=== PATIENT | male | born 1960 | race Asian ===

== ENCOUNTER 2019-12-08 10:27 | Outpatient (REF) | payer BC, SELFPAY ==
[2019-12-08 12:02] LABS: MANUAL DIFF FLAG NO
[2019-12-08 12:10] LABS: Basophils Percent Auto 0.6 % (0-2); Eosinophils Absolute Auto 0.1 X10*3/uL (0.0-0.4); Eosinophils Percent Auto 1.7 % (0-4); Hematocrit 52.1 % (42-52); Hemoglobin 16.6 g/dl (14.0-18.0); Imm Gran Abs Auto 0.01 X10*3/uL (0.00-0.03); Imm Gran Pct Auto 0.2 % (0.0-0.4); Lymphocytes Absolute Auto 2.9 X10*3/uL (1.2-4.9); Lymphocytes Percent Auto 44.7 % (20-40); Mean Corpuscular HGB Conc 31.9 g/dl (31.0-36.0); Mean Corpuscular Hemoglobin 27.1 pg (27.0-33.0); Mean Platelet Volume 12.5 fL (9.4-12.4); Monocytes Absolute Auto 0.6 X10*3/uL (0.1-1.2); Monocytes Percent Auto 9.7 % (2-11); Neutrophils Absolute Auto 2.8 X10*3/uL (2.0-8.3); Neutrophils Percent Auto 43.1 % (45-73); Platelet Count 176 X10*3/uL (160-400); Red Blood Count 6.13 X10*6/uL (4.60-5.80); Red Cell Distribution Width 13.1 % (11.0-16.0); White Blood Count 6.4 X10*3/uL (4.8-10.8)
[2019-12-08 12:56] LABS: Alanine Aminotransferase 29 U/L (0-40); Albumin Level 4.4 g/dL (3.5-5.0); Alkaline Phosphatase 69 U/L (39-117); Anion Gap 10 (12-20); Aspartate Amino Transferase 27 U/L (5-37); Bilirubin Total 0.9 mg/dL (0.0-1.0); Blood Urea Nitrogen 13 mg/dL (9-16); Calcium 9.3 mg/dL (8.4-10.2); Carbon Dioxide 30 mmol/L (22-29); Chloride 106 mmol/L (96-108); Cholesterol 153 mg/dL; Estimated Glomerular Filt Rate > 60; Glucose Fasting 86 mg/dL (60-99); HDL Cholesterol 33 mg/dL; LDL Cholesterol Calculated 93 mg/dl; Potassium 4.1 mmol/l (3.3-5.1); Sodium 142 mmol/L (135-145); Total Protein 7.4 g/dL (6.5-8.0); Triglycerides 137 mg/dL
[2019-12-08 12:58] LABS: Prostate Specific Antigen Scr 0.13 ng/mL (<0.05-4.0); TSH reflex Free T4 0.68 mIU/mL (0.32-4.0); Vitamin D 25-OH Total 71.4 ng/mL (>30)
== END 2019-12-08 10:28 | disposition home or self-care (01) ==
LOC: HO.LAB 10:27
PROVIDERS: Visit Provider Physician Assistant
DX: Z12.5 Encounter for screening for malignant neoplasm of prostate (principal); Z13.1 Encounter for screening for diabetes mellitus; E78.1 Pure hyperglyceridemia; E55.9 Vitamin D deficiency, unspecified
CPT/HCPCS: 36415; 80053; 80061; 82306; 84153; 84443; 85025

== ENCOUNTER 2020-03-04 15:45 | Emergency (ER) | payer BC, SELFPAY ==
[2020-03-04 15:50] VITALS: BP 160/91; PULSE 77; RESP 18; TEMP 36.6; O2SAT 99; BMI 26.5
[2020-03-04 19:37] VITALS: BP 156/92; PULSE 67; RESP 18; O2SAT 99
--- NOTE | 2020-03-04 19:38 | PC.NURSE ---
labs being drawn at this time. pt states he has numbness to his left side and pain to abd left side.
--- NOTE | 2020-03-04 19:42 | PC.NURSE ---
pt has steady gait.
[2020-03-04 20:10] LABS: MANUAL DIFF FLAG NO
[2020-03-04 20:13] LABS: Basophils Percent Auto 0.5 % (0-2); Eosinophils Absolute Auto 0.1 X10*3/uL (0.0-0.4); Eosinophils Percent Auto 2.1 % (0-4); Hematocrit 50.4 % (42-52); Hemoglobin 16.2 g/dl (14.0-18.0); Imm Gran Abs Auto 0.02 X10*3/uL (0.00-0.03); Imm Gran Pct Auto 0.4 % (0.0-0.4); Lymphocytes Absolute Auto 2.2 X10*3/uL (1.2-4.9); Mean Corpuscular HGB Conc 32.1 g/dl (31.0-36.0); Mean Corpuscular Hemoglobin 27.4 pg (27.0-33.0); Mean Corpuscular Volume 85.1 fL (80-98); Mean Platelet Volume 11.7 fL (9.4-12.4); Monocytes Absolute Auto 0.7 X10*3/uL (0.1-1.2); Monocytes Percent Auto 12.1 % (2-11); Neutrophils Absolute Auto 2.7 X10*3/uL (2.0-8.3); Neutrophils Percent Auto 46.9 % (45-73); Platelet Count 174 X10*3/uL (160-400); Red Blood Count 5.92 X10*6/uL (4.60-5.80); Red Cell Distribution Width 12.7 % (11.0-16.0); White Blood Count 5.7 X10*3/uL (4.8-10.8)
[2020-03-04 20:31] LABS: Alanine Aminotransferase 41 U/L (0-40); Albumin Level 4.3 g/dL (3.5-5.0); Alkaline Phosphatase 71 U/L (39-117); Anion Gap 12 (12-20); Aspartate Amino Transferase 34 U/L (5-37); Bilirubin Total 0.7 mg/dL (0.0-1.0); Blood Urea Nitrogen 10 mg/dL (9-16); Calcium 8.9 mg/dL (8.4-10.2); Carbon Dioxide 26 mmol/L (22-29); Chloride 107 mmol/L (96-108); Creatinine Clr Calc Pharmacy 77.1; Estimated Glomerular Filt Rate > 60; Glucose Random 99 mg/dL (60-115); Potassium 4.3 mmol/l (3.3-5.1); Sodium 141 mmol/L (135-145); Total Protein 7.4 g/dL (6.5-8.0)
--- NOTE | 2020-03-04 21:14 | ECG_ITS ---
Test Reason : NUMBNESS Blood Pressure : / mmHG Vent. Rate : 067 BPM Atrial Rate : 067 BPM P-R Int : 152 ms QRS Dur : 096 ms QT Int : 398 ms P-R-T Axes : 051 027 039 degrees QTc Int : 420 ms Normal sinus rhythm Normal ECG No previous ECGs available Referred By: Albino Chang Electronically Signed By:Nicholas Gray
--- NOTE | 2020-03-04 21:17 | ED_ITS ---
HPI - Weakness General Chief complaint: Weakness Stated complaint: one sided numbness,loss of balance Time Seen by Provider: 03/04/20 17:02 Source: patient Mode of arrival: ambulatory Limitations: no limitations History of Present Illness HPI Narrative: Patient presents to ED for lower back pain radiating down left leg for 2 days. Patient states numbness/tingling going down the left leg patient and also states left arm numbness for two days. patient states two days ago he had chest pain that resolved and never came back. Patient denies any shortness of breath, chest pain on inspiration, swelling of lower extremities, calf pain, coughing up blood, fever, chills, recent long travel, estrogen hormone use, or any recent trauma to the chest. Patient states having the symptoms for 2 days. Patient denies denies any dizziness, slurred speech, loss of vision, shortness of breath, paralysis of extremities, or altered mental status. Related Data Home Medications Medication Instructions Recorded Confirmed cholecalciferol (vitamin D3) 25 25 mcg PO DAILY 11/25/19 11/29/19 mcg (1,000 unit) tablet Allergies Allergy/AdvReac Type Severity Reaction Status Date / Time ciprofloxacin [From Cipro] Allergy Unknown Unknown Verified 11/29/19 14:57 Review of Systems 2 Review of Systems: Yes all other systems are reviewed and are negative Constitutional: Constitutional: Reports as per HPI and Reports no additional constitutional complaints Eyes: Eyes: Reports as per HPI and Reports no additional eye complaints ENT: Reports system reviewed and no additional complaints, except as documented and Reports as per HPI Cardiovascular: Cardiovascular: Reports as per HPI and Reports no additional cardiovascular complaints Respiratory: Respiratory: Reports as per HPI and Reports no additional respiratory complaints Gastrointestinal: Gastrointestinal: Reports as per HPI and Reports no additional gastrointestinal complaints Genitourinary: Genitourinary: Reports no additional male genitourinary complaints and Reports as per HPI Musculoskeletal: Musculoskeletal: Reports no additional musculoskeletal complaints, Reports as per HPI and Reports tingling Neurologic: Reports system reviewed and no additional complaints, except as documented, Reports as per HPI, Reports tingling and Reports paresthesias Psychiatric: Psychiatric: Reports no additional psychiatric complaints and Reports as per HPI PMFSH Past Medical History Medical History (Updated 03/05/20 @ 00:00 by Hoda Uriarte) Hypertriglyceridemia Normal colonoscopy Sleep apnea Family History Family History (Updated 10/01/20 @ 11:48 by MARIANELA Quinones) Father No problems noted. Mother No problems noted. Brother CVA (cerebral vascular accident) Sister Heart murmur Social History Social History (Updated 11/29/19 @ 15:00 by Mark Meléndez PA-C) Alcohol intake: current Smoking Status: Never smoker Advance Directives: No Physical Exam Vital Signs: Vital Signs: Last Vital Signs Temp 97.8 F 03/04/20 15:50 Pulse 63 03/04/20 22:00 Resp 18 03/04/20 22:00 BP 112/70 03/04/20 22:00 Pulse Ox 98 03/04/20 22:00 Body Mass Index 26.5 Const: General: cooperative, healthy appearing, comfortable, no acute distress, well developed, alert, awake and Physically active Orientation/consciousness: patient oriented x3 HENMT: Head: Yes normal to inspection, Yes No palpable skull fracture present, Yes normocephalic, Yes atraumatic and No abrasion Eyes: General: appearance normal, both eyes and all related structures Neck: Neck: Yes normal visual inspection, Yes full ROM, Yes no lymphade nopathy, Yes no meningeal signs, Yes trachea midline, Yes supple and No tender Chest: Chest palpation & inspection: normal inspection of the chest and normal palpation of entire chest wall Resp: Effort & Inspection: normal respiratory effort and able to speak in complete sentences Auscultation: clear to auscultation bilaterally Cardio: Jugular venous distension: no JVD Heart sounds: S1 normal heart sound present and S2 normal heart sound present GI: Inspection: Yes normal to inspection Palpation (GI): Soft to palpation, not firm, nontender, no guarding and not rigid : General: No CVA tenderness and Yes no CVA tenderness Back/Spine/Pelvis: Back: no CVA tenderness, No CVA tenderness and back te nderness (Lumbar spine tenderness) Skin: General skin exam: no rashes or lesions noted and elasticity normal Neuro: Other: Negative facial droop. Negative slurred speech. All ext remities motor/neuro/vascular exam is intact. All extremity strength 4+. Negative Romberg. Rapid hand movement and [id number] test is intact. General: patient oriented x3, gait normal, no meningeal signs and CN's II-XI intact bilaterally Cranial nerves: Yes CN's II-XII intact bilaterally Extrem: General: Yes normal to inspection and Yes full ROM Psych: Appearance: grossly normal, well kempt and not disheveled Course Course Course Narrative: Patient have a CT scan, UA, EKG, troponin, and basic labs ordered. Reevaluation(s) Reevaluation #1: Physical exam negative for any neuro deficits. Due to age patient was sent for head CT scan which was negative for any stroke. Patient's EKG is normal. Patient's chest x-ray negative for any pneumonia or any other pulmonary etiology. Lumbar x-ray shows arthritis of the lumbar spine. UA negative for any blood. Patient does not have any CVA tenderness. Not suspecting kidney stones. Time: 23:06 MDM - Weakness MDM Narrative Medical decision making narrative: Paresthesia. Lumbar radiculopathy Lab Data Result diagrams: 03/04/20 19:41 03/04/20 19:41 Labs: Lab Results 03/04/20 03/04/20 03/04/20 Range/Units 19:41 19:41 19:41 WBC 5.7 (4.8-10.8) X10*3/uL RBC 5.92 H (4.60-5.80) X10*6/uL Hgb 16.2 (14.0-18.0) g/dl Hct 50.4 (42-52) % MCV 85.1 (80-98) fL MCH 27.4 (27.0-33.0) pg MCHC 32.1 (31.0-36.0) g/dl RDW 12.7 (11.0-16.0) % Plt Count 174 (160-400) X10*3/uL MPV 11.7 (9.4-12.4) fL Immature Gran % (Auto) 0.4 (0.0-0.4) % Neut % (Auto) 46.9 (45-73) % Lymph % (Auto) 38.0 (20-40) % Pershing % (Auto) 12.1 H (2-11) % Eos % (Auto) 2.1 (0-4) % Baso % (Auto) 0.5 (0-2) % Lymph # (Auto) 2.2 (1.2-4.9) X10*3/uL Pershing # (Auto) 0.7 (0.1-1.2) X10*3/uL Eos # (Auto) 0.1 (0.0-0.4) X10*3/uL Baso # (Auto) 0.0 (0.0-0.2) X10*3/uL Abs Immat Gran (auto) 0.02 (0.00-0.03) X10*3/uL Absolute Neuts (auto) 2.7 (2.0-8.3) X10*3/uL Absolute Nucleated RBC 0.000 (0.0-0.012) X10*3/uL Nucleated RBC % (auto) 0.0 (0.0-0.2) /100WBC Hold Purple Top SEE NOTE PT 12.3 (10.8-13.0) SEC INR 1.0 (0.9-1.1) APTT 36.6 (24.1-38.0) SEC Hold Blue Top SEE NOTE Sodium (135-145) mmol/L Potassium (3.3-5.1) mmol/l Chloride (96-108) mmol/L Carbon Dioxide (22-29) mmol/L Anion Gap (12-20) BUN (9-16) mg/dL Creatinine (0.5-1.4) mg/dL Estim Creat Clear Calc Estimated GFR Random Glucose (60-115) mg/dL Calcium (8.4-10.2) mg/dL Magnesium (1.6-2.6) mg/dL Total Bilirubin (0.0-1.0) mg/dL AST (5-37) U/L ALT (0-40) U/L Alkaline Phosphatase (39-117) U/L Troponin I High Sens (<3.5-35.0) ng/L Total Protein (6.5-8.0) g/dL Albumin (3.5-5.0) g/dL Urine Color Urine Appearance Urine pH (5.0-8.0) Ur Specific [place] (1.005-1.025) Urine Protein (NEG-TRACE) MG/DL Urine Glucose (UA) (NEG) MG/DL Urine Ketones (NEG) MG/DL Urine Blood (NEG) Urine Nitrite (NEG) Ur Leukocyte Esterase (NEG) 03/04/20 03/04/20 03/04/20 Range/Units 19:41 19:41 21:01 WBC (4.8-10.8) X10*3/uL RBC (4.60-5.80) X10*6/uL Hgb (14.0-18.0) g/dl Hct (42-52) % MCV (80-98) fL MCH (27.0-33.0) pg MCHC (31.0-36.0) g/dl RDW (11.0-16.0) % Plt Count (160-400) X10*3/uL MPV (9.4-12.4) fL Immature Gran % (Auto) (0.0-0.4) % Neut % (Auto) (45-73) % Lymph % (Auto) (20-40) % Pershing % (Auto) (2-11) % Eos % (Auto) (0-4) % Baso % (Auto) (0-2) % Lymph # (Auto) (1.2-4.9) X10*3/uL Pershing # (Auto) (0.1-1.2) X10*3/uL Eos # (Auto) (0.0-0.4) X10*3/uL Baso # (Auto) (0.0-0.2) X10*3/uL Abs Immat Gran (auto) (0.00-0.03) X10*3/uL Absolute Neuts (auto) (2.0-8.3) X10*3/uL Absolute Nucleated RBC (0.0-0.012) X10*3/uL Nucleated RBC % (auto) (0.0-0.2) /100WBC Hold Purple Top PT (10.8-13.0) SEC INR (0.9-1.1) APTT (24.1-38.0) SEC Hold Blue Top Sodium 141 (135-145) mmol/L Potassium 4.3 (3.3-5.1) mmol/l Chloride 107 (96-108) mmol/L Carbon Dioxide 26 (22-29) mmol/L Anion Gap 12 (12-20) BUN 10 (9-16) mg/dL Creatinine 0.84 (0.5-1.4) mg/dL Estim Creat Clear Calc 77.1 Estimated GFR > 60 Random Glucose 99 (60-115) mg/dL Calcium 8.9 (8.4-10.2) mg/dL Magnesium 2.4 (1.6-2.6) mg/dL Total Bilirubin 0.7 (0.0-1.0) mg/dL AST 34 (5-37) U/L ALT 41 H (0-40) U/L Alkaline Phosphatase 71 (39-117) U/L Troponin I High Sens < 3.5 (<3.5-35.0) ng/L Total Protein 7.4 (6.5-8.0) g/dL Albumin 4.3 (3.5-5.0) g/dL Urine Color YELLOW Urine Appearance CLEAR Urine pH 7.5 (5.0-8.0) Ur Specific [place] 1.015 (1.005-1.025) Urine Protein NEG (NEG-TRACE) MG/DL Urine Glucose (UA) NEG (NEG) MG/DL Urine Ketones NEG (NEG) MG/DL Urine Blood NEG (NEG) Urine Nitrite NEG (NEG) Ur Leukocyte Esterase NEG (NEG) ECG Data Interpretation: Normal sinus rhythm. Normal EKG. Ventricular rate 67. Pr interval 152. QRS 96. Negative STEMI Discharge Plan Discharge Clinical Impression: Paresthesia, Acute left lumbar radiculopathy Patient Disposition: Home, Self-Care Instructions: Paresthesia (ED), Lumbar Radiculopathy (ED) Additional Instructions: Return to the ED for any chest pain, shortness of breath, swelling of lower extremities, calf pain, coughing up blood, fever, chills, or any other concerning symptoms. Prescriptions: No Action cholecalciferol (vitamin D3) 25 mcg (1,000 unit) tablet 25 mcg PO DAILY RF: 0 Referrals: Ximena Garay MD [Physician] - 2 days (Lumbar radiculopathy) Milo Garay MD [Physician] - 2 days (Paresthesia. Head CT negative. Electrolytes normal.) Interventions: ED Discharge Assessment Last Done: 03/04/20 23:37 Discharge Date/Time: 03/04/20 23:38
[2020-03-04 21:19] LABS: Glucose Urine UA NEG (NEG); Leukocyte Esterase Urine NEG (NEG); Nitrite Urine NEG (NEG); PH 7.5 (5.0-8.0); Specific Gravity - Urine 1.015 (1.005-1.025); Urine Blood NEG (NEG); Urine Ketones NEG (NEG); Urine Protein NEG (NEG-TRACE)
[2020-03-04 21:22] LABS: Appearance Urine CLEAR; Color Urine YELLOW
[2020-03-04 21:27] LABS: Prothrombin Time 12.3 SEC (10.8-13.0)
[2020-03-04 21:29] LABS: Partial Thromboplastin Time 36.6 SEC (24.1-38.0)
[2020-03-04 21:36] LABS: Magnesium 2.4 mg/dL (1.6-2.6)
--- NOTE | 2020-03-04 21:49 | XR_ITS ---
EXAMINATION: XR LUMBOSACRAL SPINE CLINICAL INFORMATION: Lower back pain COMPARISON: None TECHNIQUE: AP and lateral views of the lumbar spine with an additional coned down lateral spot view of the lumbosacral junction. FINDINGS: 5 non-rib bearing lumbar type vertebral bodies are seen. Asymmetrically diminutive right 12th rib. Prominent L5 transverse processes. There is loss of disc height, endplate sclerosis, osteophytosis, and vacuum disc phenomenon at L5-S1. Lower lumbar facet arthropathy. No compression fracture seen. Mild spurring of both sacroiliac joints but they're patent. XR/XR lumbar spine 2-3V IMPRESSION: Degenerative disc disease at L5-S1.
--- NOTE | 2020-03-04 21:49 | XR_ITS ---
EXAMINATION: XR CHEST CLINICAL INFORMATION: Resolved chest pain COMPARISON: 01/31/2016 TECHNIQUE: 2 views of the chest were obtained. FINDINGS: Lungs are clear. No focal consolidation or mass. Normal pulmonary vascularity. No pleural effusion or pneumothorax. Normal heart size. Degenerative changes of the shoulders. No acute osseous abnormality. XR/XR chest 2V IMPRESSION: No acute pulmonary disease.
--- NOTE | 2020-03-04 21:49 | CT_ITS ---
EXAMINATION: CT HEAD WITHOUT CONTRAST CLINICAL INFORMATION: Numbness COMPARISON: None TECHNIQUE: Contiguous axial imaging was performed from the skull base to vertex without intravenous administration of contrast. This CT examination was performed using dose optimization techniques as appropriate, variously including the following: *Automated exposure control *Adjustment of mA and/or kV according to patient size (this includes techniques or standardized protocols for targeted exams where dose is matched to indication/reason for exam; i.e. extremities or head) *Use of iterative reconstruction technique DLP: 578 mGy-cm FINDINGS: There is no evidence of acute intracranial hemorrhage or territorial infarction. No abnormal mass effect or midline shift is seen. Green to white matter differentiation is well preserved. No extra-axial fluid collections are identified. The ventricles are normal in size. There is no abnormal attenuation within the brain parenchyma. The osseous structures and soft tissues are normal. The mastoid air cells and visualized portions of the paranasal sinuses are well aerated. CT/CT head/brain wo con IMPRESSION: No acute intracranial pathology.
[2020-03-04 22:00] VITALS: BP 112/70; PULSE 63; RESP 18; O2SAT 98
[2020-03-04 22:27] LABS: Troponin-I High Sensitivity < 3.5 ng/L (<3.5-35.0)
--- NOTE | 2020-03-04 23:29 | PC.NURSE ---
PATIENT AMBULATING WITH STEADY GAIT. PREPARING FOR DISCHARGE.
== END 2020-03-04 23:38 | disposition home or self-care (01) ==
PROVIDERS: Physician Assistant; Emergency Provider Emergency Medicine
DX: R20.2 Paresthesia of skin (principal); M54.16 Radiculopathy, lumbar region
CPT/HCPCS: 36415; 70450; 71046; 72100; 80053; 81003; 83735; 84484; 85025; 85610; 85730; 93005; 99284

== ENCOUNTER 2020-03-13 15:01 | Outpatient (REF) | payer BC, SELFPAY ==
--- NOTE | 2020-03-13 15:07 | XR_ITS ---
EXAMINATION: XR HAND, LEFT CLINICAL INFORMATION: Pain COMPARISON: None TECHNIQUE: PA, lateral, and oblique views of the left hand. FINDINGS: The bones and soft tissues are normal. No fracture. Alignment is anatomic. Joint spaces are maintained. No erosions or soft tissue calcifications. XR/XR hand LT min 3V IMPRESSION: Normal left hand.
== END 2020-03-13 15:02 | disposition home or self-care (01) ==
LOC: HO.XRAY 15:01
PROVIDERS: PCP Physician Assistant; Visit Provider Physician Assistant
DX: M79.642 Pain in left hand (principal)
CPT/HCPCS: 73130

== ENCOUNTER 2020-12-06 11:40 | Outpatient (REF) | payer BC, SELFPAY ==
[2020-12-06 13:26] LABS: Alanine Aminotransferase 27 U/L (0-40); Albumin Level 4.3 g/dL (3.5-5.0); Alkaline Phosphatase 71 U/L (39-117); Aspartate Amino Transferase 25 U/L (5-37); Bilirubin Total 0.4 mg/dL (0.0-1.0); Blood Urea Nitrogen 13 mg/dL (9-16); Calcium 9.6 mg/dL (8.4-10.2); Estimated Glomerular Filt Rate > 60; Glucose Fasting 104 mg/dL (60-99); Total Protein 7.5 g/dL (6.5-8.0)
[2020-12-06 13:36] LABS: Anion Gap 12 (12-20); Carbon Dioxide 26 mmol/L (22-29); Chloride 107 mmol/L (96-108); Potassium 4.6 mmol/L (3.3-5.1); Sodium 140 mmol/L (135-145)
[2020-12-06 13:42] LABS: TSH reflex Free T4 0.95 uIU/mL (0.32-4.0); Vitamin D 25-OH Total 64.5 ng/mL (>30)
[2020-12-06 13:43] LABS: Estimated Average Glucose 120 mg/dL; Hemoglobin A1c % 5.8 %
== END 2020-12-06 11:41 | disposition home or self-care (01) ==
LOC: HO.LAB 11:40
PROVIDERS: PCP Physician Assistant; Visit Provider Physician Assistant
DX: Z13.29 Encounter for screening for other suspected endocrine disorder (principal); E55.9 Vitamin D deficiency, unspecified
CPT/HCPCS: 36415; 80053; 82306; 83036; 84443

== ENCOUNTER → 2020-12-12 08:16 | Outpatient (REF) | payer BC, SELFPAY ==
--- NOTE | 2020-12-12 08:24 | CA_ITS ---
Acquisition Time: 2020-12-12 08:18:11 Total Exercise Time: 00:06:30 Test Indications: CP Medications: SEE CHART Protocol: ANNIKA Max HR: 162 BPM 100% of Pred: 161 BPM Max BP: 188/086 mmHG Max Work Load: 7.7 METS Exercise stress test with exercise 6 min 30 sec of Annika protocol, achieving 100% MPHR and 7.7 METS, without anginal symptoms, without arrythmia, with normotensive response to exercise, without EKG changes meeting criteria for ischemia. Test reviewed with Dr Laurent. Referred By: Mark Meléndez Overread By: ELEAZAR BRENNER
== END ==
LOC: HO.CARD 08:16
PROVIDERS: PCP Physician Assistant; Visit Provider Physician Assistant
DX: R07.9 Chest pain, unspecified (principal)
CPT/HCPCS: 93017

== ENCOUNTER → 2021-03-26 07:39 | Outpatient (BNVA) | payer BC, SELFPAY | PROVIDERS: PCP Physician Assistant; Visit Provider Physician Assistant ==

== ENCOUNTER 2021-10-30 12:48 | Outpatient (REF) | payer BC, SELFPAY ==
[2021-10-30 14:02] LABS: Alanine Aminotransferase 35 U/L (0-40); Albumin Level 4.4 g/dL (3.5-5.0); Alkaline Phosphatase 73 U/L (39-117); Anion Gap 13 (12-20); Aspartate Amino Transferase 31 U/L (5-37); Bilirubin Total 0.4 mg/dL (0.0-1.0); Blood Urea Nitrogen 19 mg/dL (9-16); Calcium 9.4 mg/dL (8.4-10.2); Carbon Dioxide 25 mmol/L (22-29); Chloride 107 mmol/L (96-108); Cholesterol 158 mg/dL; Estimated Glomerular Filt Rate > 60; Glucose Fasting 100 mg/dL (60-99); HDL Cholesterol 38 mg/dL; LDL Cholesterol Calculated 96 mg/dl; Potassium 4.3 mmol/L (3.3-5.1); Sodium 141 mmol/L (135-145); Total Protein 7.7 g/dL (6.5-8.0); Triglycerides 124 mg/dL
[2021-10-30 14:22] LABS: Prostate Specific Antigen Scr 0.17 ng/mL (<0.05-4.0); TSH reflex Free T4 0.83 uIU/mL (0.32-4.0)
== END 2021-10-30 12:49 | disposition home or self-care (01) ==
LOC: HO.LAB 12:48
PROVIDERS: PCP Internal Medicine; Visit Provider Physician Assistant
DX: Z12.5 Encounter for screening for malignant neoplasm of prostate (principal); E78.1 Pure hyperglyceridemia
CPT/HCPCS: 36415; 80053; 80061; 84153; 84443

== ENCOUNTER 2022-02-28 13:04 | Outpatient (REF) | payer BC, SELFPAY ==
--- NOTE | ~2022-02-28 | XR_ITS ---
EXAMINATION: X-RAY BILATERAL KNEES X-RAY RIGHT KNEE CLINICAL INFORMATION: Knee pain COMPARISON: None TECHNIQUE: AP bilateral knees one view. Right knee 2 views. FINDINGS: Right knee: Marginal osteophytes and mild joint space loss in the medial and lateral compartment. Apparent prominent patellofemoral compartment joint space narrowing. No acute fracture or dislocation. No effusion. Left knee: Marginal osteophytes in the medial and lateral compartment. XR/XR knee standing BI IMPRESSION: Right knee: Tricompartment osteoarthritis. Apparent severe patellofemoral arthritis.
--- NOTE | ~2022-02-28 | XR_ITS ---
EXAMINATION: X-RAY BILATERAL KNEES X-RAY RIGHT KNEE CLINICAL INFORMATION: Knee pain COMPARISON: None TECHNIQUE: AP bilateral knees one view. Right knee 2 views. FINDINGS: Right knee: Marginal osteophytes and mild joint space loss in the medial and lateral compartment. Apparent prominent patellofemoral compartment joint space narrowing. No acute fracture or dislocation. No effusion. Left knee: Marginal osteophytes in the medial and lateral compartment. XR/XR knee RT 2V IMPRESSION: Right knee: Tricompartment osteoarthritis. Apparent severe patellofemoral arthritis.
== END 2022-02-28 13:05 | disposition home or self-care (01) ==
LOC: HO.HOSX 13:04
PROVIDERS: PCP Nurse Practitioner Family; Visit Provider Physician Assistant
DX: M71.21 Synovial cyst of popliteal space [Baker], right knee (principal)
CPT/HCPCS: 73560; 73565

== ENCOUNTER 2022-04-11 08:12 | Outpatient (REF) | payer BC, SELFPAY ==
[2022-04-11 08:24] LABS: MANUAL DIFF FLAG NO
[2022-04-11 08:55] LABS: Basophils Percent Auto 0.5 % (0-2); Eosinophils Absolute Auto 0.1 X10*3/uL (0.0-0.4); Eosinophils Percent Auto 1.2 % (0-4); Hematocrit 54.4 % (42.0-52.0); Hemoglobin 17.4 g/dl (14.0-18.0); Imm Gran Abs Auto 0.03 X10*3/uL (0.00-0.03); Imm Gran Pct Auto 0.4 % (0.0-0.4); Lymphocytes Absolute Auto 2.5 X10*3/uL (1.2-4.9); Lymphocytes Percent Auto 32.6 % (20-40); Mean Corpuscular Hemoglobin 26.9 pg (27.0-33.0); Monocytes Absolute Auto 0.6 X10*3/uL (0.1-1.2); Monocytes Percent Auto 7.5 % (2-11); Neutrophils Absolute Auto 4.4 x10*3/uL (2.0-8.3); Neutrophils Percent Auto 57.8 % (45-73); Platelet Count 190 X10*3/uL (160-400); Red Blood Count 6.48 X10*6/uL (4.60-5.80); Red Cell Distribution Width 12.9 % (11.0-16.0); White Blood Count 7.6 X10*3/uL (4.8-10.8)
[2022-04-11 09:40] LABS: Vitamin D 25-OH Total 64.2 ng/mL (>30)
== END 2022-04-11 08:13 | disposition home or self-care (01) ==
LOC: HO.LAB 08:12
PROVIDERS: PCP Nurse Practitioner Family; Visit Provider Nurse Practitioner Family
DX: Z00.00 Encounter for general adult medical examination without abnormal findings (principal)
CPT/HCPCS: 36415; 82306; 85025

== ENCOUNTER 2023-02-20 15:39 | Outpatient (AMB) | payer BC, SELFPAY ==
[2023-02-20 15:42] VITALS: BP 136/86; PULSE 75; O2SAT 97; BMI 28.0
--- NOTE | 2023-02-20 15:42 | A.OFFPC_ITS ---
Vital Signs 02/20/23 15:42 Height 5 ft 3 in Weight 158 lb BMI 28.0 BP 136/86 Blood Pressure Location Lt brachial Position Sitting Pulse 75 Pulse Source Pulse Oximeter Pulse Oximetry (%) 97 Oxygen Delivery Method Room Air Intake Visit Reasons: Annual exam Chief Analytics Officer Required: No Yard Engineer: Not Required per policy Accompanied by: Self / Same As Patient Allergies ciprofloxacin [From Cipro] Allergy (Unknown, Verified 02/20/23 16:29) Unknown UNKNOWN Allergy (Unknown, Uncoded 02/20/23 15:42) PT DOESN'T REMEMBER NAME Medication List - Last Reconciled 02/20/23 by Mark Meléndez PA-C cholecalciferol (vitamin D3) 25 mcg PO DAILY Tobacco use date assessed: 08/20/22 Dental Screening Dental Screen Date: 02/20/23 Did you have a dental visit in the last 12 months?: Yes Did you have a dental problem in the last 6 months where you did not have access to dental care?: No Was dental information given to patient?: Patient has dentist HPI Annual exam HPI Details Lucy is a 62-year-old male here today for an annual physical. Patient has a pmhx significant for, Vit D def,? hypertriglyceridemia, DEJA. ? .. ? DEJA: Patient reports he is somewhat compliant with using CPAP nightly. Note does have elevated RBC counts. .. .. ?hypertriglyceridemia:? Patient does have a history of high triglycerides, has been trying to work on low triglyceride diet. Most recent lipid panel done in 2021 showing appropriate total cholesterol and triglycerides. Colon cancer screening: Cologuard done in August of 2022 was negative Vaccines: Up-to-date with COVID vaccine, flu vaccine tetanus and pneumonia vaccines, considering shingles. Laboratory Tests 04/11/22 08:20 25-OH Vitamin D To braxton 64.2 PFSH Medical History Sleep apnea Normal colonoscopy Hypertriglyceridemia Family History Father No problems noted. Mother No problems noted. Brother CVA (cerebral vascular accident) Sister Heart murmur Social History (Updated 02/20/23 @ 16:34 by Mark Meléndez PA-C) Housing: House Alcohol intake: current Alcohol intake frequency: holidays/special occasions only Alcohol type: beer Patient Tobacco Use Status: Never used Tobacco Tobacco use type: Cigarette e-Cigarette/Vaping Use: Never Used Second Hand Smoke Exposure: No service: No Current occupational status: employed Current occupation: [employer] Cognitive needs: No Hearing needs: No Vision needs: Yes Questionnaire Thrive Questionnaire Date Thrive assessed: 08/20/22 VERONICA-7 AMB Questionnaire VERONICA-7 Date VERONICA - 7 assessed: 08/20/22 Source: Developed by Drs. Simón Thompson, Nerissa Mason, Calvin Salmon and colleagues, with an educational sanjeev from [employer]. Review of Systems Const Denies body aches, Denies chills, Denies excessive sweating, Denies fatigue, Denies fever(s) and Denies headache(s) Eyes Denies blurry vision ENT Denies dysphagia, Denies vertigo, Denies dizziness, Denies headache(s), Denies hearing loss and Denies tinnitus Card Denies chest pain, Denies chest pain with activity, Denies syncope, Denies irregular heart rhythm and Denies dyspnea Resp Denies chest congestion, Denies cough, Denies hemoptysis, Denies dyspnea and Denies wheezing GI Denies abdominal pain, Denies melena, Denies hematochezia, Denies coffee ground emesis, Denies dysphagia, Denies diarrhea, Denies nausea and Denies vomiting Denies difficulty urinating, Denies dysuria, Denies urinary frequency, Denies urinary hesitancy and Denies urinary urgency Musc Denies arthralgias, Denies limited range of motion, Denies muscle cramps and Denies muscle weakness Skin/Breast Denies rash and Denies skin ulcer Neuro Denies Abnormal speech present, Denies confusion, Denies vertigo, Denies dizziness, Denies syncope, Denies headache(s), Denies memory loss and Denies seizure-like activity Psych Denies anxiety, Denies confusion, Denies depression, Denies memory loss, Denies panic attacks and Denies paranoia Endo Denies excessive sweating, Denies fatigue, Denies flushing, Denies polydipsia and Denies polyuria Aller/Immun Denies wheezing Physical exam (Primary Care) Vital Signs: Last Vital Signs Pulse 75 02/20/23 15:42 BP 136/86 02/20/23 15:42 Pulse Ox 97 02/20/23 15:42 Oxygen Delivery Method Room Air 02/20/23 15:42 BMI result Body Mass Index 28.0 Tobacco/Smoking Status: Tobacco use Status Tobacco use date assessed 08/20/22 02/20/23 15:43 Patient Tobacco Use Status Never used Tobacco 02/20/23 16:34 Tobacco use type Cigarette 02/20/23 16:34 e-Cigarette/Vaping Use Never Used 02/20/23 16:34 Thrive Assessment: Date of Thrive Assessment Date Thrive assessed 08/20/22 02/20/23 15:43 Const General: cooperative, comfortable, no acute distress, alert and awake; No confusion Orientation/consciousness: oriented to person, oriented to place, patient oriented x3 and No confusion HENMT Head: Yes normocephalic Ears: external ears normal and TM's normal bilaterally Face and sinus: No sinus tenderness Mouth: Normal oral and palatal mucosa present and tongue normal Teeth and gingiva: dentition normal and gingiva normal Throat: Yes posterior oropharynx normal, Yes tonsils normal and Yes uvula midline Eyes Conjunctivae: conjunctivae normal Sclerae: sclerae normal Pupils: Equal, round and reactive pupils present EOM: EOMs intact bilaterally Direct Ophthalmoscopy: No no photophobia Neck Neck: Yes no lymphadenopathy, No tender and Yes no JVD Thyroid: Thyroid normal Carotids: no bruits Chest Chest palpation & inspection: no tenderness Resp Effort & Inspection: normal respiratory effort, no audible wheezes, not labored and no stridor Auscultation: no crackles, no rales, no rhonchi and no wheezes Cardio Jugular venous distension: no JVD Rate: regular rate, not bradycardic and not tachycardic Rhythm: regular rhythm Bruits: no carotid bruits Peripheral pulses: Peripheral pulses 2+ throughout GI Inspection: Yes normal to inspection, No abdominal wall ecchymosis and No visibl e herniation Palpation (GI): Soft to palpation, nontender, no guarding, not rigid and No hepatosplenomegaly present Auscultation: normoactive bowel sounds General: Yes no CVA tenderness Back/Spine/Pelvis Back: no CVA tenderness and No back tenderness Cervical Spine: cervical ROM normal Thoracic/Lumbar Spine: thoracic and lumbar spine normal to inspection, straight leg raise negative bilaterally, No thoraco-lumbar ROM limited and No lumbar spinal tenderness Skin Lesions: no lesions Rashes: no rashes Wounds: no wounds Neuro General: oriented to person, oriented to place, patient oriented x3, CN's II-XI intact bilaterally and No confusion Cranial nerves: Yes Equal, round and reactive pupils present and Yes Normal accommodation reflex present Cognition (Neuro): normal cognition Speech: No Abnormal speech present Gait exam (Neuro): Normal gait present Motor exam (neuro): 5/5 motor strength present throughout Extrem Right upper extremity: full ROM; no cyanosis Left upper extremity: full ROM; no cyanosis Right lower extremity: no edema Left lower extremity: no edema Psych Appearance: grossly normal Mental Status: mental status grossly normal Affect: normal affect Attitude: cooperative Thought process: Normal thought process present Assessment and Plan Assessment & Plan (1) Annual physical exam: Code(s): Z00.00 - Encounter for general adult medical examination without abnormal findings (2) Hypertriglyceridemia: Code(s): E78.1 - Pure hyperglyceridemia Plan: Most recent fasting lipid panel showing appropriate triglycerides. Continue on lifestyle modifications on reducing high triglyceride foods. (3) Vitamin D deficiency: Code(s): E55.9 - Vitamin D deficiency, unspecified Plan: Patient continues on vitamin-D supplementation. Most recent vitamin-D level stable. (4) DEJA (obstructive sleep apnea): Comment: uses machine- follows with pcp- no issues Code(s): G47.33 - Obstructive sleep apnea (adult) (pediatric) Plan: Patient is somewhat compliant with use of CPAP machine. Does reported dries out his mouth. He will try to be more consistent with the use of CPAP. Of note does elevated RBC count. Coding Level of Care Code Est Pt Prev Care 40-64y(84072) Diagnoses Annual physical exam Z00.00 Hypertriglyceridemia E78.1 Vitamin D deficiency E55.9 DEJA (obstructive sleep apnea) G47.33
== END 2023-02-20 16:47 | disposition home or self-care (01) ==
PROVIDERS: Visit Provider Physician Assistant
DX: Z00.00 Encounter for general adult medical examination without abnormal findings (principal); E78.1 Pure hyperglyceridemia; E55.9 Vitamin D deficiency, unspecified; G47.33 Obstructive sleep apnea (adult) (pediatric)
CPT/HCPCS: 99396

== ENCOUNTER 2023-05-16 09:10 | Outpatient (REF) | payer BC, SELFPAY ==
[2023-05-16 10:41] LABS: Hematocrit 53.5 % (42.0-52.0); Hemoglobin 17.2 g/dl (14.0-18.0); Mean Corpuscular HGB Conc 32.1 g/dl (31.0-36.0); Mean Corpuscular Hemoglobin 26.8 pg (27.0-33.0); Mean Corpuscular Volume 83.5 fL (80.0-98.0); Mean Platelet Volume 11.5 fL (9.4-12.4); Platelet Count 167 X10*3/uL (160-400); Red Blood Count 6.41 X10*6/uL (4.60-5.80)
[2023-05-16 11:10] LABS: Alanine Aminotransferase 35 U/L (0-40); Albumin Level 4.3 g/dL (3.5-5.0); Alkaline Phosphatase 77 U/L (39-117); Anion Gap 11 (12-20); Aspartate Amino Transferase 30 U/L (5-37); Bilirubin Total 0.4 mg/dL (0.0-1.0); Blood Urea Nitrogen 10 mg/dL (9-16); Calcium 9.5 mg/dL (8.4-10.2); Carbon Dioxide 29 mmol/L (22-29); Chloride 107 mmol/L (96-108); Cholesterol 142 mg/dL (<200); Estimated Glomerular Filt Rate > 60; Glucose Fasting 87 mg/dL (60-99); HDL Cholesterol 29 mg/dL (>40); LDL Cholesterol Calculated 56 mg/dL (<100); Potassium 3.7 mmol/L (3.3-5.1); Sodium 143 mmol/L (135-145); Total Protein 7.8 g/dL (6.5-8.0); Triglycerides 289 mg/dL (<150)
[2023-05-16 11:35] LABS: Prostate Specific Antigen Scr 0.15 ng/mL (<0.05-4.0)
== END 2023-05-16 09:11 | disposition home or self-care (01) ==
LOC: HO.LAB 09:10
PROVIDERS: PCP Physician Assistant; Visit Provider Physician Assistant
DX: Z12.5 Encounter for screening for malignant neoplasm of prostate (principal); E78.1 Pure hyperglyceridemia
CPT/HCPCS: 36415; 80053; 80061; 84153; 85027

== ENCOUNTER 2024-02-23 08:16 | Outpatient (AMB) | payer BC, SELFPAY ==
--- NOTE | 2024-02-23 08:18 | A.OFFPC_ITS ---
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 Accompanied by: Self / Same As Patient Allergies ciprofloxacin [From Cipro] Allergy (Unknown, Verified 02/23/24 08:28) Unknown UNKNOWN Allergy (Unknown, Uncoded 02/23/24 08:28) PT DOESN'T REMEMBER NAME Medication List - Last Reconciled 02/23/24 by Mark Meléndez PA-C cholecalciferol (vitamin D3) 25 mcg PO DAILY Tobacco use date assessed: 02/23/24 Dental Screening Dental Screen Date: 02/23/24 Did you have a dental visit in the last 12 months?: Yes Did you have a dental problem in the last 6 months where you did not have access to dental care?: No Was dental information given to patient?: Patient has dentist HPI Annual Exam HPI Details Lucy is a 63-year-old male here today for an annual physical. Patient has a pmhx significant for, Vit D def,? hypertriglyceridemia, DEJA. ? .. ? DEJA: Patient reports he is somewhat compliant with using CPAP nightly. Note does have elevated RBC counts. .. .. ?hypertriglyceridemia:? Patient does have a history of high triglycerides, has been trying to work on low triglyceride diet. Colon cancer screening: Cologuard done in August of 2022 was negative-repeat 3 years Vaccines: Up-to-date with COVID vaccine, need flu vaccine, , UTD with tetanus and pneumonia vaccines, considering shingles. Laboratory Tests 04/11/22 08:20 25-OH Vitamin D To braxton 64.2 PFSH Medical History Sleep apnea Normal colonoscopy Hypertriglyceridemia Family History Father No problems noted. Mother No problems noted. Brother CVA (cerebral vascular accident) Sister Heart murmur Social History (Updated 02/23/24 @ 08:28 by Mark Medhat, PA-C) Housing: House Alcohol intake: current Alcohol intake frequency: holidays/special occasions only Alcohol type: beer Patient Tobacco Use Status: Never used Tobacco e-Cigarette/Vaping Use: Never Used Second Hand Smoke Exposure: No service: No Current occupational status: employed Current occupation: [employer] Current occupational exposures/hazards: No Cognitive needs: No Hearing needs: No Vision needs: Yes Questionnaire PHQ-9 Over the last 2 weeks, how often have you been bothered by any of the following problems? 1. Little interest or pleasure in doing things: several days 2. Feeling down, depressed, or hopeless: not at all 3. Trouble falling or staying asleep, or sleeping too much: not at all 4. Feeling tired or having little energy: not at all 5. Poor appetite or overeating: not at all 6. Feeling bad about yourself - or that you are a failure or have let yourself or your family down: not at all 7. Trouble concentrating on things, such as reading the newspaper or watching television: not at all 8. Moving or speaking so slowly that other people could have noticed. Or the opposite - being so fidgety or restless that you have been moving around a lot more than usual: not at all 9. Thoughts that you would be better off or of hurting yourself in some way: not at all Total score: 1 Depression Screening Interpretation: Negative Depression Screening Done: Yes 74570 - PHQ-9 Billing: Yes Source: Developed by Drs. Simón Thompson, Nerissa Mason, Calvin Salmon and colleagues, with an educational sanjeev from [employer]. Thrive Questionnaire Date Thrive assessed: 02/23/24 I am a: Patient What is your living situation today?: I have a steady place to live Within the past 12 months, did the food you bought not last and you didn't have the money to get more?: Never true Within the past 12 months, did you worry whether your food would run out before you got money to buy more?: I choose not to answer this question Do you have trouble paying for medicines?: No Do you have trouble getting transportation to medical appointments?: No Do you have trouble paying your heating and electricity bill?: No Do you have trouble taking care of your child, family member or friend?: No Do you have trouble with day-to-day activities such as bathing, preparing meals, shopping, managing finances, etc.?: No Are you currently unemployed and looking for a job?: No Are you interested in more education?: No Please select the resources that you would like help with: None Currently or been in a relationship where the following occur: I choose not to answer THRIVE Score: 0 AUDIT C Alcohol Use Questionnaire (AUDIT-C) 1. How often do you have a drink containing alcohol?: Monthly or less 2. How many drinks containing alcohol do you have on a typical day when you are drinking?: 1 or 2 3. How often do you have six or more drinks on one occasion?: Never Total Score: 1 VERONICA-7 AMB Questionnaire VERONICA-7 Date VERONICA - 7 assessed: 02/23/24 Feeling nervous, anxious, or on edge: 0 = Not at all Not being able to stop or control worryin = Not at all Worrying too much about different things: 0 = Not at all Trouble relaxin = Not at all Being so restless that it is hard to sit still: 0 = Not at all Becoming easily annoyed or irritable: 0 = Not at all Feeling afraid as if something awful might happen: 0 = Not at all Total VERONICA-7 score (0-4 normal; 5-9 mild; 10-14 moderate; 15-21 severe): 0 Source: Developed by Drs. Simón Thompson, Nerissa Mason, Calvin Salmon and colleagues, with an educational sanjeev from [employer]. VERONICA-7 Assessment Billing VERONICA-7 Assessment Tool: VERONICA-7 Assessment 27709 Review of Systems Const Denies body aches, Denies chills, Denies excessive sweating, Denies fatigue, Denies fever(s) and Denies headache(s) Eyes Denies blurry vision ENT Denies dysphagia, Denies vertigo, Denies dizziness, Denies headache(s), Denies hearing loss and Denies tinnitus Card Denies chest pain, Denies chest pain with activity, Denies syncope, Denies irregular heart rhythm and Denies dyspnea Resp Denies chest congestion, Denies cough, Denies hemoptysis, Denies dyspnea and Denies wheezing GI Denies abdominal pain, Denies melena, Denies hematochezia, Denies coffee ground emesis, Denies dysphagia, Denies diarrhea, Denies nausea and Denies vomiting Denies difficulty urinating, Denies dysuria, Denies urinary frequency, Denies urinary hesitancy and Denies urinary urgency Musc Denies arthralgias, Denies limited range of motion, Denies muscle cramps and Denies muscle weakness Skin/Breast Denies rash and Denies skin ulcer Neuro Denies Abnormal speech present, Denies confusion, Denies vertigo, Denies dizziness, Denies syncope, Denies headache(s), Denies memory loss and Denies seizure-like activity Psych Denies anxiety, Denies confusion, Denies depression, Denies memory loss, Denies panic attacks and Denies paranoia Endo Denies excessive sweating, Denies fatigue, Denies flushing, Denies polydipsia and Denies polyuria Aller/Immun Denies wheezing Physical exam (Primary Care) Vital Signs: Last Vital Signs Pulse 78 02/23/24 08:20 BP 132/86 02/23/24 08:20 Pulse Ox 97 02/23/24 08:20 Oxygen Delivery Method Room Air 02/23/24 08:20 BMI result Body Mass Index 28.3 Tobacco/Smoking Status: Tobacco use Status Tobacco use date assessed 02/23/24 02/23/24 08:24 Patient Tobacco Use Status Never used Tobacco 02/23/24 08:28 Tobacco use type 02/23/24 08:28 e-Cigarette/Vaping Use Never Used 02/23/24 08:28 PHQ-9: PHQ-9 Score PHQ-9: Total score 1 02/23/24 08:40 Depression Screening Interpretation: Negative Thrive Assessment: Date of Thrive Assessment Date Thrive assessed 02/23/24 02/23/24 08:24 Currently or been in a relationship where the following occur: I choose not to answer Const General: cooperative, comfortable, no acute distress, alert and awake; No confusion Orientation/consciousness: oriented to person, oriented to place, patient oriented x3 and No confusion HENMT Head: Yes normocephalic Ears: external ears normal and TM's normal bilaterally Face and sinus: No sinus tenderness Mouth: Normal oral and palatal mucosa present and tongue normal Teeth and gingiva: dentition normal and gingiva normal Throat: Yes posterior oropharynx normal, Yes tonsils normal and Yes uvula midline Eyes Conjunctivae: conjunctivae normal Sclerae: sclerae normal Pupils: Equal, round and reactive pupils present EOM: EOMs intact bilaterally Direct Ophthalmoscopy: No no photophobia Neck Neck: Yes no lymphadenopathy, No tender and Yes no JVD Thyroid: Thyroid normal Carotids: no bruits Chest Chest palpation & inspection: no tenderness Resp Effort & Inspection: normal respiratory effort, no audible wheezes, not labored and no stridor Auscultation: no crackles, no rales, no rhonchi and no wheezes Cardio Jugular venous distension: no JVD Rate: regular rate, not bradycardic and not tachycardic Rhythm: regular rhythm Bruits: no carotid bruits Peripheral pulses: Peripheral pulses 2+ throughout GI Inspection: Yes normal to inspection, No abdominal wall ecchymosis and No visible herniation Palpation (GI): Soft to palpation, nontender, no guarding, not rigid and No hepatosplenomegaly present Auscultation: normoactive bowel sounds General: Yes no CVA tenderness Back/Spine/Pelvis Back: no CVA tenderness and No back tenderness Cervical Spine: cervical ROM normal Thoracic/Lumbar Spine: thoracic and lumbar spine normal to inspection, straight leg raise negative bilaterally, No thoraco-lumbar ROM limited and No lumbar spinal tenderness Skin Lesions: no lesions Rashes: no rashes Wounds: no wounds Neuro General: oriented to person, oriented to place, patient oriented x3, CN's II-XI intact bilaterally and No confusion Cranial nerves: Yes Equal, round and reactive pupils present and Yes Normal accommodation reflex present Cognition (Neuro): normal cognition Speech: No Abnormal speech present Gait exam (Neuro): Normal gait present Motor exam (neuro): 5/5 motor strength present throughout Extrem Right upper extremity: full ROM; no cyanosis Left upper extremity: full ROM; no cyanosis Right lower extremity: no edema Left lower extremity: no edema Psych Appearance: grossly normal Mental Status: mental status grossly normal Affect: normal affect Attitude: cooperative Thought process: Normal thought process present Office Procedures Flu Questionnaire Does the patient have a severe egg allergy?: No Does the patient have severe life threatening allergies?: No Does the patient have a fever or illness today?: No Has the patient ever had Guillain-[place] Syndrome?: No Has the patient ever had any past reaction to a flu shot?: No Immunizations Fluarix Triv [id number] (PF) 45 mcg (15 mcg x 3)/0.5 mL IM syringe Performing Provider: Mark Meléndez PA-C [facility] Administered by: Lauren Roy CMA on 02/23/24 08:39 Dose Route Admin Location Dispensed Lot Number Expiration Date NDC Certified Prosthetist Vice President 0.5 mL IM Left Tricep 0.5 mL [id number] 08/23/24 49677-900-68 [employer] VIS Given Date VIS Provided VIS Publication Date 02/23/24 Single Vaccine 20 Eligibility Eligibility Date Funding Source Not [facility] Eligible 02/23/24 Private Coding Level of Care Code Est Pt Prev Care 40-64y(83279) Diagnoses Annual physical exam Z00.00 Hypertriglyceridemia E78.1 DEJA (obstructive sleep apnea) G47.33 Screening for diabetes mellitus (DM) Z13.1 Additional Codes VERONICA-7 Assessment Billing - VERONICA-7 Assessment Tool: VERONICA-7 Assessment 97024 ([id number]) PHQ-9 - 74263 - PHQ-9 Billing: Yes ([id number]) Assessment & Plan Assessment & Plan (1) Annual physical exam: Code(s): Z00.00 - Encounter for general adult medical examination without abnormal findings Category: Medical Plan: As per HPI (2) Hypertriglyceridemia: Code(s): E78.1 - Pure hyperglyceridemia Category: Medical Plan: Patient has a history of hypertriglyceridemia. Has been working on low triglyceride diet. Will continue to follow fasting lipid panels. (3) DEJA (obstructive sleep apnea): Comment: uses machine- follows with pcp- no issues Code(s): G47.33 - Obstructive sleep apnea (adult) (pediatric) Category: Medical Plan: Patient does report using his machine quite regularly though does miss nights of use. (4) Screening for diabetes mellitus (DM): Code(s): Z13.1 - Encounter for screening for diabetes mellitus Category: Medical Plan: As per HPI Orders: Orders Vitamin D 25-OH Total Today E55.9 - Vitamin D deficiency, unspecified Lipid Panel Today E78.1 - Pure hyperglyceridemia Prostate Specific Antigen Scr Today E78.1 - Pure hyperglyceridemia, Z12.5 - Encounter for screening for malignant neoplasm of prostate Influenza [id number] Immunization Today Z23 - Encounter for immunization Comprehensive [place]. Panel Fast Today Z13.1 - Encounter for screening for diabetes mellitus Complete Blood Count no Diff Today E78.1 - Pure hyperglyceridemia
[2024-02-23 08:20] VITALS: BP 132/86; PULSE 78; O2SAT 97; BMI 28.3
== END 2024-02-23 08:42 | disposition home or self-care (01) ==
PROVIDERS: PCP Physician Assistant; Visit Provider Physician Assistant
DX: Z00.00 Encounter for general adult medical examination without abnormal findings (principal); E78.1 Pure hyperglyceridemia; G47.33 Obstructive sleep apnea (adult) (pediatric); Z13.1 Encounter for screening for diabetes mellitus; Z23 Encounter for immunization

== ENCOUNTER → 2024-02-23 08:16 | Outpatient (BNVA) | payer BC, SELFPAY | PROVIDERS: PCP Physician Assistant; Visit Provider Physician Assistant | DX: Z00.00 Encounter for general adult medical examination without abnormal findings (principal); Z23 Encounter for immunization; E78.1 Pure hyperglyceridemia; G47.33 Obstructive sleep apnea (adult) (pediatric) | CPT/HCPCS: 90471; 90656; 96127 ==

== ENCOUNTER 2024-06-18 10:57 | Outpatient (REF) | payer BC, SELFPAY ==
[2024-06-18 11:54] LABS: Hemoglobin 16.1 g/dl (14.0-18.0); Mean Corpuscular HGB Conc 32.9 g/dl (31.0-36.0); Mean Corpuscular Hemoglobin 27.2 pg (27.0-33.0); Mean Corpuscular Volume 82.9 fL (80.0-98.0); Mean Platelet Volume 11.9 fL (9.4-12.4); Platelet Count 180 X10*3/uL (160-400); Red Blood Count 5.91 X10*6/uL (4.60-5.80); Red Cell Distribution Width 13.1 % (11.0-16.0); White Blood Count 5.9 X10*3/uL (4.8-10.8)
[2024-06-18 12:29] LABS: Alanine Aminotransferase 42 U/L (0-40); Albumin Level 4.3 g/dL (3.5-5.0); Alkaline Phosphatase 68 U/L (39-117); Anion Gap 9 (12-20); Aspartate Amino Transferase 38 U/L (5-37); Bilirubin Total 0.8 mg/dL (0.0-1.0); Blood Urea Nitrogen 14 mg/dL (9-16); Calcium 9.6 mg/dL (8.4-10.2); Carbon Dioxide 28 mmol/L (22-29); Chloride 109 mmol/L (96-108); Cholesterol 154 mg/dL (<200); Estimated Glomerular Filt Rate > 60; Glucose Fasting 101 mg/dL (60-99); HDL Cholesterol 35 mg/dL (>40); LDL Cholesterol Calculated 99 mg/dL (<100); Potassium 4.2 mmol/L (3.3-5.1); Sodium 142 mmol/L (135-145); Total Protein 7.6 g/dL (6.5-8.0); Triglycerides 102 mg/dL (<150)
[2024-06-18 12:34] LABS: Vitamin D 25-OH Total 76.5 ng/mL (>30)
[2024-06-18 12:36] LABS: Prostate Specific Antigen Scr 0.17 ng/mL (<0.05-4.0)
== END 2024-06-18 10:58 | disposition home or self-care (01) ==
LOC: HO.LAB 10:57
PROVIDERS: PCP Physician Assistant; Visit Provider Physician Assistant
DX: E55.9 Vitamin D deficiency, unspecified (principal); Z13.1 Encounter for screening for diabetes mellitus; E78.1 Pure hyperglyceridemia; Z12.5 Encounter for screening for malignant neoplasm of prostate
CPT/HCPCS: 36415; 80053; 80061; 82306; 84153; 85027

== ENCOUNTER 2024-08-16 10:45 | Outpatient (REF) | payer BC, SELFPAY ==
--- OUTSIDE RECORDS SUMMARY | 2024-08-16 12:03 | XMS_ITS | Patient Health Record ---
Author Organization [facility] Address [address] [place] [id number] Care Team Providers Care Comp Field Case Manager Name Role Phone Simón Newman Unavailable [phone] Reason For Referral No Information Plan Of Treatment No Information
[2024-08-16 12:14] LABS: Albumin Level 4.3 g/dL (3.5-5.0); Alkaline Phosphatase 67 U/L (39-117); Aspartate Amino Transferase 37 U/L (5-37); Bilirubin Direct 0.1 mg/dL (0.0-0.5); Bilirubin Total 0.5 mg/dL (0.0-1.0); Total Protein 7.3 g/dL (6.5-8.0)
[2024-08-16 12:35] LABS: Alanine Aminotransferase 41 U/L (0-40)
== END 2024-08-16 10:46 | disposition home or self-care (01) ==
LOC: HO.LAB 10:45
PROVIDERS: PCP Physician Assistant; Visit Provider Physician Assistant
DX: R74.8 Abnormal levels of other serum enzymes (principal)
CPT/HCPCS: 36415; 80076

== ENCOUNTER 2025-02-23 09:16 | Outpatient (AMB) | payer BC, SELFPAY ==
--- OUTSIDE RECORDS SUMMARY | 2025-02-23 09:29 | XMS_ITS ---
Author Organization Unknown ENCOUNTERS Encounter Performer Location Date Diagnosis Diagnosis Status Emergency [facility] [address] [place] [id number] KEHINDE *Note: Encounters from your own facility or health system may be excluded. Allergies, Adverse Reactions, Alerts Allergen Type Severity Identification Date ciprofloxacin drug allergy [id number] Medications Name Date Quantity Days Supplied GPI Number
[2025-02-23 09:30] VITALS: BP 152/94; PULSE 90; TEMP 36.6; O2SAT 96; BMI 27.3
--- NOTE | 2025-02-23 09:30 | A.OFFPC_ITS ---
Vital Signs 02/23/25 09:30 02/23/25 09:47 Height 5 ft 3 in Weight 154 lb 2 oz BMI 27.3 BP 152/94 H 125/82 Blood Pressure Location Lt brachial Position Sitting Pulse 90 Pulse Source Pulse Oximeter Temp 97.8 F Temp Source Temporal Artery Scan Pulse Oximetry (%) 96 Oxygen Delivery Method Room Air Intake Visit Reasons: ANNUAL Allergies ciprofloxacin (From Cipro) Allergy (Unknown, Verified 02/23/25 09:40) Unknown UNKNOWN Allergy (Unknown, Uncoded 02/23/25 09:40) PT DOESN'T REMEMBER NAME Medication List - Last Reconciled 02/23/25 by Mark Meléndez PA-C cholecalciferol (vitamin D3) 25 mcg PO DAILY Tobacco use date assessed: 02/23/25 Dental Screening Dental Screen Date: 02/23/25 Did you have a dental visit in the last 12 months?: Yes Did you have a dental problem in the last 6 months where you did not have access to dental care?: No Was dental information given to patient?: Patient has dentist HPI ANNUAL HPI Details Lucy is a 64-year-old male here today for an annual physical. Patient has a pmhx significant for, Vit D def,? hypertriglyceridemia, DEJA. concerns--> The patient reports intermittent episodes where his heart seems to beat faster, which can occur even without exertion. He had a cardiac stress test in 2020 that was normal, but he would like to be re-evaluated. ? .. ? DEJA: Patient reports he is somewhat compliant with using CPAP nightly. Note does have elevated RBC counts. .. .. ?hypertriglyceridemia:? Patient does have a history of high triglycerides, has been trying to work on low triglyceride diet. Colon cancer screening: Cologuard done in August of 2022 was negative-repeat 3 years Vaccines: Up-to-date with COVID vaccine, need flu vaccine, , UTD with tetanus and pneumonia vaccines, considering shingles. [facility] Medical History Sleep apnea Normal colonoscopy Hypertriglyceridemia Family History Father No problems noted. Mother No problems noted. Brother CVA (cerebral vascular accident) Sister Heart murmur Social History Housing: House Alcohol intake: current Alcohol intake frequency: holidays/special occasions only Alcohol type: beer Patient Tobacco Use Status: Never used Tobacco e-Cigarette/Vaping Use: Never Used Second Hand Smoke Exposure: No service: No Current occupational status: employed Current occupation: [employer] Current occupational exposures/hazards: No Cognitive needs: No Hearing needs: No Vision needs: Yes Questionnaire PHQ-9 Over the last 2 weeks, how often have you been bothered by any of the following problems? 1. Little interest or pleasure in doing things: several days 2. Feeling down, depressed, or hopeless: not at all 3. Trouble falling or staying asleep, or sleeping too much: not at all 4. Feeling tired or having little energy: not at all 5. Poor appetite or overeating: not at all 6. Feeling bad about yourself - or that you are a failure or have let yourself or your family down: not at all 7. Trouble concentrating on things, such as reading the newspaper or watching television: not at all 8. Moving or speaking so slowly that other people could have noticed. Or the opposite - being so fidgety or restless that you have been moving around a lot more than usual: not at all 9. Thoughts that you would be better off or of hurting yourself in some way: not at all Total score: 1 Depression Screening Interpretation: Negative Depression Screening Done: Yes Source: Developed by Drs. Simón Thompson, Nerissa Mason, Calvin Salmon and colleagues, with an educational sanjeev from [employer]. Thrive Questionnaire Date Thrive assessed: 02/23/25 I am a: Patient What is your living situation today?: I have a steady place to live Within the past 12 months, did the food you bought not last and you didn't have the money to get more?: Never true Within the past 12 months, did you worry whether your food would run out before you got money to buy more?: I choose not to answer this question Do you have trouble paying for medicines?: No Do you have trouble getting transportation to medical appointments?: No Do you have trouble paying your heating and electricity bill?: No Do you have trouble taking care of your child, family member or friend?: No Do you have trouble with day-to-day activities such as bathing, preparing meals, shopping, managing finances, etc.?: No Are you currently unemployed and looking for a job?: No Are you interested in more education?: No Currently or been in a relationship where the following occur: I choose not to answer THRIVE Score: 0 AUDIT C Alcohol Use Questionnaire (AUDIT-C) 1. How often do you have a drink containing alcohol?: Monthly or less 2. How many drinks containing alcohol do you have on a typical day when you are drinking?: 1 or 2 3. How often do you have six or more drinks on one occasion?: Never Total Score: 1 VERONICA-7 AMB Questionnaire VERONICA-7 Date VERONICA - 7 assessed: 02/23/25 Feeling nervous, anxious, or on edge: 0 = Not at all Not being able to stop or control worryin = Not at all Worrying too much about different things: 0 = Not at all Trouble relaxin = Not at all Being so restless that it is hard to sit still: 0 = Not at all Becoming easily annoyed or irritable: 0 = Not at all Feeling afraid as if something awful might happen: 0 = Not at all Total VERONICA-7 score (0-4 normal; 5-9 mild; 10-14 moderate; 15-21 severe): 0 Source: Developed by Drs. Simón Thompson, Nerissa Mason, Calvin Salmon and colleagues, with an educational sanjeev from [employer]. VERONICA-7 Assessment Billing VERONICA-7 Assessment Tool: VERONICA-7 Assessment 42079 Physical exam (Primary Care) Vital Signs: Last Vital Signs Temp 97.8 F 02/23/25 09:30 Pulse 90 02/23/25 09:30 BP 125/82 02/23/25 09:47 Pulse Ox 96 02/23/25 09:30 Oxygen Delivery Method Room Air 02/23/25 09:30 BMI result Body Mass Index 27.3 Tobacco/Smoking Status: Tobacco use Status Tobacco use date assessed 02/23/25 02/23/25 09:34 Patient Tobacco Use Status Never used Tobacco 02/23/25 09:34 Tobacco use type 02/23/24 08:41 e-Cigarette/Vaping Use Never Used 02/23/25 09:34 PHQ-9: PHQ-9 Score PHQ-9: Total score 1 02/23/25 09:43 Depression Screening Interpretation: Negative Thrive Assessment: Date of Thrive Assessment Date Thrive assessed 02/23/25 02/23/25 09:34 Currently or been in a relationship where the following occur: I choose not to answer Office Procedures Flu Questionnaire Does the patient have a severe egg allergy?: No Does the patient have severe life threatening allergies?: No Does the patient have a fever or illness today?: No Has the patient ever had Guillain-[place] Syndrome?: No Has the patient ever had any past reaction to a flu shot?: No Immunizations Fluarix [id number] (PF) 45 mcg (15 mcg x 3)/0.5 mL IM syringe Performing Provider: Mark Meléndez PA-C [facility] [place] [facility] Administered by: Lauren Roy CMA on 02/23/25 10:01 Dose Route Admin Location Dispensed Lot Number Expiration Date CTC Operator Catalyst Concentration 0.5 mL IM Left Deltoid 0.5 mL [id number] 08/23/25 16907-007-74 [employer] VIS Given Date VIS Provided VIS Publication Date 02/23/25 Single Vaccine 24 Eligibility Eligibility Date Funding Source Not [facility] Eligible 02/23/25 Private Coding Diagnoses Annual physical exam Z00.00 Subacute frontal sinusitis J01.10 Sinusitis location: frontal Chronicity: subacute Hypertriglyceridemia E78.1 DEJA (obstructive sleep apnea) G47.33 Screening for diabetes mellitus (DM) Z13.1 Additional Codes VERONICA-7 Assessment Billing - VERONICA-7 Assessment Tool: VERONICA-7 Assessment 66380 ([id number]) Assessment & Plan Assessment & Plan (1) Annual physical exam: Code(s): Z00.00 - Encounter for general adult medical examination without abnormal findings Category: Medical Plan: As per HPI (2) Sinus infection: Code(s): J32.9 - Chronic sinusitis, unspecified Category: Medical Qualifiers: Sinusitis location: frontal Chronicity: subacute Qualified Code(s): J01.10 - Acute frontal sinusitis, unspecified (3) Hypertriglyceridemia: Code(s): E78.1 - Pure hyperglyceridemia Category: Medical Plan: Patient has a history of hypertriglyceridemia. Has been working on low triglyceride diet. Will continue to follow fasting lipid panels. (4) DEJA (obstructive sleep apnea): Comment: uses machine- follows with pcp- no issues Code(s): G47.33 - Obstructive sleep apnea (adult) (pediatric) Category: Medical Plan: Patient does report using his machine quite regularly though does miss nights of use. (5) Screening for diabetes mellitus (DM): Code(s): Z13.1 - Encounter for screening for diabetes mellitus Category: Medical Plan: As per [facility] Orders: Orders Vitamin D 25-OH Total Today E55.9 - Vitamin D deficiency, unspecified Lipid Panel Today E78.1 - Pure hyperglyceridemia Prostate Specific Antigen Scr Today E55.9 - Vitamin D deficiency, unspecified, Z12.5 - Encounter for screening for malignant neoplasm of prostate Comprehensive [place]. Panel Fast Today Z13.1 - Encounter for screening for diabetes mellitus Complete Blood Count no Diff Today Z13.1 - Encounter for screening for diabetes mellitus CA stress test Today R07.9 - Chest pain, unspecified RT home sleep study Today G47.33 - Obstructive sleep apnea (adult) (pediatric) Influenza [id number] Immunization Today Z23 - Encounter for immunization Medications: New amoxicillin 500 mg PO Q8H 15 caps 0RF 5 days J01.10 - Acute frontal sinusitis, unspecified
--- OUTSIDE RECORDS SUMMARY | 2025-02-23 09:30 | XMS_ITS | Patient Health Record ---
Author Organization [facility] Address [address] [place] [id number] Care Team Providers Care Medical Practice Assistant Name Role Phone Simón Newman Unavailable [phone] Reason For Referral No Information Plan Of Treatment No Information
[2025-02-23 09:47] VITALS: BP 125/82
== END 2025-02-23 10:03 | disposition home or self-care (01) ==
LOC: HO.HMCH 09:17
PROVIDERS: PCP Physician Assistant; Visit Provider Physician Assistant
DX: Z23 Encounter for immunization (principal)

== ENCOUNTER → 2025-02-23 09:16 | Outpatient (BNVA) | payer BC, SELFPAY | PROVIDERS: PCP Physician Assistant; Visit Provider Physician Assistant | DX: Z00.01 Encounter for general adult medical examination with abnormal findings (principal); J01.01 Acute recurrent maxillary sinusitis; R07.9 Chest pain, unspecified; Z13.1 Encounter for screening for diabetes mellitus; G47.33 Obstructive sleep apnea (adult) (pediatric); E55.9 Vitamin D deficiency, unspecified; E78.1 Pure hyperglyceridemia; Z13.39 Encounter for screening examination for other mental health and behavioral disorders; Z12.5 Encounter for screening for malignant neoplasm of prostate; Z23 Encounter for immunization; Z99.89 Dependence on other enabling machines and devices | CPT/HCPCS: 90471; 90656; 96127 ==